=== PATIENT | female | born 1970 | race Caucasian/White ===

== ENCOUNTER → 2021-02-05 | Outpatient (CLI) | payer OTHER ==
[~2021-02-05] MED LIST: BENTYL20 MG PO; ELMIRON100 MG PO; PANTOPRAZOLE SO40 MG PO; PREMARIN0.9 MG PO; SAVELLA50 MG PO
== END ==
LOC: RAD 09:52
PROVIDERS: ATTEND Internal Medicine
DX: M17.0 Bilateral primary osteoarthritis of knee (principal); M19.042 Primary osteoarthritis, left hand; M19.041 Primary osteoarthritis, right hand; M79.7 Fibromyalgia; M18.9 Osteoarthritis of first carpometacarpal joint, unspecified; Z79.899 Other long term (current) drug therapy
CPT/HCPCS: 72202; 73521